=== PATIENT | male | born 1965 | race Caucasian/White ===

== ENCOUNTER 2021-10-05 20:19 | Emergency (ER) | payer BC ==
[2021-10-05] MEDS ORDERED: Sodium Chloride 0.9% 1,000 ML IV ONE (21:33)
[2021-10-05] MEDS ORDERED: Ketorolac 15 MG/ML SDV IVPUSH ONE (21:33)
[2021-10-05] MEDS ORDERED: FLU Vacc QS2021-22 36MOS UP/PF 60 MCG/0.5 ML Syringe IM ONE (21:45)
== END 2021-10-05 23:55 | disposition home or self-care (01) ==
LOC: JD.ED 20:19
DX: K40.90 Unilateral inguinal hernia, without obstruction or gangrene, not specified as recurrent (principal); N40.0 Benign prostatic hyperplasia without lower urinary tract symptoms; E66.9 Obesity, unspecified; Z79.899 Other long term (current) drug therapy; Z23 Encounter for immunization; Z68.31 Body mass index [BMI] 31.0-31.9, adult
CPT/HCPCS: 36415; 80053; 81001; 83605; 83690; 85025; 90471; 90686; 96374; 99284; J1885; J7030; G0008

== ENCOUNTER 2021-10-24 10:34 | Day surgery (SDC) | payer BC ==
[~2021-10-24 10:34] MED LIST: Acetaminophen 325 MG Tab PO SCH; Dexamethasone 4 MG/ML 5 ML MDV ONE; Gabapentin 300 MG Cap PO SCH; Ketorolac 30 MG/ML SDV ONE; Lactated Ringers 1,000 ML IV SCH; Lidocaine 1% 4 ML ONE; Lidocaine 1%/Sod Bicarbonate in NS 8.4% 1 ML Syringe IDERM PRN; Midazolam 1 MG/ML 2 ML SDV ONE; Ondansetron 4 MG/2 ML SDV ONE; Propofol 200 MG/20 ML SDV ONE; Rocuronium 50 MG/5 ML Vial ONE; Sodium Chloride 0.9% 10 ML Syringe FLUSH PRN; Sodium Chloride 0.9% 10 ML Syringe FLUSH SCH; fentaNYL 250 MCG/5 ML SDV ONE
[2021-10-24] MEDS ORDERED: Lidocaine 1% with EPINEPHrine 1:100,000 20 ML MDV ONE ×2 (10:59→11:02)
[2021-10-24] MEDS ORDERED: Bupivacaine 0.5%/EPINEPHrine 1:200,000 50 ML MDV ONE (11:00)
[2021-10-24] MEDS ORDERED: Propofol 200 MG/20 ML SDV ONE ×2 (11:28→12:38)
[2021-10-24] MEDS ORDERED: Rocuronium 50 MG/5 ML Vial ONE (11:45)
[2021-10-24] MEDS ORDERED: ceFAZolin 1 GM Vial ONE (11:52)
[2021-10-24] MEDS ORDERED: Lactated Ringers 1,000 ML ONE (11:59)
[2021-10-24] MEDS ORDERED: Ketamine 500 mg/10 ML MDV ONE (12:21)
[2021-10-24] MEDS ORDERED: Ondansetron 4 MG/2 ML SDV IVPUSH PRN (12:23)
[2021-10-24] MEDS ORDERED: HYDROmorphone 0.5 MG/0.5 ML Syringe IVPUSH PRN (12:23)
[2021-10-24] MEDS ORDERED: fentaNYL 100 MCG/2 ML SDV IVPUSH PRN (12:23)
[2021-10-24] MEDS ORDERED: Acetaminophen/oxyCODONE 325-5 MG Tab PO ONE (13:30)
== END 2021-10-24 17:00 | disposition home or self-care (01) ==
LOC: JD.SDS 10:34
PROVIDERS: ATTEND Surgery
DX: K40.90 Unilateral inguinal hernia, without obstruction or gangrene, not specified as recurrent (principal); D17.6 Benign lipomatous neoplasm of spermatic cord; I10 Essential (primary) hypertension; G47.30 Sleep apnea, unspecified; E11.9 Type 2 diabetes mellitus without complications; H54.7 Unspecified visual loss; Z90.49 Acquired absence of other specified parts of digestive tract; Z98.890 Other specified postprocedural states; Z90.89 Acquired absence of other organs; Z79.84 Long term (current) use of oral hypoglycemic drugs; Z79.899 Other long term (current) drug therapy
CPT/HCPCS: 49650; 82947; A9270; J0690; J1100; J1885; J2250; J2405; J2704; J2710; J3010; J3490; J7120; 00840; C1727; C1781; J2370

== ENCOUNTER 2024-06-15 05:39 | Emergency (ER) | payer OTHER ==
[2024-06-15] MEDS ORDERED: Sodium Chloride 0.9% 10 ML Syringe FLUSH PRN (06:02)
[2024-06-15] MEDS: Ondansetron 4 MG/2 ML SDV IVPUSH ONE (06:15)
[2024-06-15] MEDS: HYDROmorphone 1 MG/ML Syringe IVPUSH ONE (06:15)
[2024-06-15] MEDS: Ketorolac 30 MG/ML SDV IVPUSH ONE (06:15)
[2024-06-15] MEDS ORDERED: Naloxone 0.4 MG/ML SDV IVPUSH PRN (07:34)
[2024-06-15] MEDS: HYDROmorphone 0.5 MG/0.5 ML Syringe IVPUSH ONE (07:39)
== END 2024-06-15 07:55 | disposition home or self-care (01) ==
LOC: JD.ED 05:39
DX: M25.511 Pain in right shoulder (principal); E11.9 Type 2 diabetes mellitus without complications; Z90.49 Acquired absence of other specified parts of digestive tract; Z79.84 Long term (current) use of oral hypoglycemic drugs; Z79.891 Long term (current) use of opiate analgesic; Z79.899 Other long term (current) drug therapy
CPT/HCPCS: 96374; 96375; 96376; 99283; J1171; J1885; J2405